=== PATIENT | female | born 1955 | race Caucasian/White ===

== ENCOUNTER → 2020-06-03 14:00 | Outpatient (CLI) | payer MEDICARE, MEDICAID, SELFPAY ==
--- NOTE | 2020-06-03 14:25 | MRI_ITS ---
HISTORY: Dilated pancreatic duct. Pancreatic cyst. Diabetes. Cholecystectomy. Pain in upper abdomen. Symptoms ongoing for 2 months. Technique: Axial coronal series were obtained through the abdomen. MRCP 2-D and MRCP 3-D series are provided. No comparison imaging of the spine. 295 minutes. Findings: Within the lower thoracic and lumbar spine bony alignment is normal. The SPECT. Body height are normal. Spinal canal is patent. Within the lateral segment of the left hepatic lobe, within a subcapsular position there is a 17 mm T2 fat sat hyperintense lesion. It is hyperintense on T2 and fat-sat series, but not to the same degree of intensity is on the T2 series. It is hypointense on T1. The remainder of the liver is normal. The stomach is decompressed. The spleen, and adrenal glands are normal. Kidneys are normal. The aorta and IVC are normal. Pancreatic ductal dilatation is present and is fairly severe. Pancreatic atrophy. Within the pancreatic head there appear to be 2 adjacent anterior cysts. One of these measures 10 mm, and the other, with slightly less well-defined margins measures 9 mm. Within the uncinate process of the pancreatic head there is a third lesion measuring 12 mm. The gallbladder has been resected. There is no intra-or extrahepatic biliary ductal dilatation. No biliary ductal filling defects. No pancreatic head masses are perceived. The portal vein appears normal. The splenic vein and superior mesenteric vein appeared normal. The lungs are expanded is normal. The pleural effusions. No ascites. MRI/MRCP Abdomen without Contrast IMPRESSION: 17 mm hyperintense lesion on T2-weighted sequences with and the anterior aspect the lateral segment of left hepatic lobe. This likely represents a cyst. The could represent a benign hemangioma. Recommend comparison with any previous imaging to assess for change. Slight prominence with cystic dilatation to the pancreatic duct with at least 2 cysts within the pancreatic head. No pancreatic head mass is perceived. The pancreatic duct within the pancreatic head is not abnormally dilated. A third cyst is present within the uncinate process of the pancreatic head. It measures 12 mm. These findings are likely sequelae of chronic pancreatitis rather than malignancy. at 0626 Reported and signed by: Cristian Shukla MD Electronically Signed: Cristian Shukla MD at 6:24 EST Tel , Service support ,
== END ==
DX: K86.89 Other specified diseases of pancreas (principal); K86.2 Cyst of pancreas
CPT/HCPCS: 74181